=== PATIENT | female | born 1975 | race Caucasian/White ===

== ENCOUNTER 2022-08-05 04:55 | Emergency (ER) | payer MEDICAID ==
[~2022-08-05] VITALS: Ht 152.4 cm; Wt 48.0 kg
[~2022-08-05 04:55] MED LIST: HYDR-4001 MT
[2022-08-05] MEDS ORDERED: ONDANSETRON HCL 4MG/2ML INJ IV STA (09:37)
[2022-08-05] MEDS ORDERED: KETOROLAC 30MG/ML VIAL IV STA (09:37)
[2022-08-05] MEDS ORDERED: SODIUM CHLORIDE 0.9% 1,000 ML IV ONE (09:45)
[2022-08-05 10:03] LABS: HEMOGLOBIN. 13.6 g/dL (12.0-16.0); MEAN CORPUSCULAR HEMOGLOBIN 28.3 pg (28.0-32.0); MEAN CORPUSCULAR VOLUME 85.5 fL (81.0-99.0); RED CELL DISTRIBUTION WIDTH 13.8 % (11.6-14.6)
[2022-08-05 10:07] LABS: PROTHROMBIN TIME 10.9 sec (9.6-11.0)
[2022-08-05 10:18] LABS: HCG SCREEN NEGATIVE
[2022-08-05 10:22] LABS: CHLORIDE 104 mEq/L (98-107)
[2022-08-05 10:24] LABS: PLATELET ESTIMATE NORMAL
[2022-08-05 10:27] VITALS: BP 128/64
[2022-08-05 10:31] LABS: ETHANOL BLOOD < 10 mg/dL
[2022-08-05 10:52] LABS: CLARITY URINE CLOUDY (CLEAR); COLOR URINE DARK YELLOW (YELLOW); KETONES URINE 4+ (NEGATIVE); LEUKOCYTE ESTERASE URINE NEGATIVE (NEGATIVE); NITRITE URINE NEGATIVE (NEGATIVE); OCCULT BLOOD URINE 1+ (NEGATIVE); PH URINE 5.5 (4.5-8.0); PROTEIN URINE 4+ (NEGATIVE); SPECIFIC GRAVITY URINE 1.037 (1.005-1.030)
[2022-08-05 11:09] LABS: *AMPHETAMINES SCREEN URINE NEGATIVE (NEGATIVE); *BARBITURATES SCREEN URINE NEGATIVE (NEGATIVE); *BENZODIAZEPINES SCREEN URINE NEGATIVE (NEGATIVE); *COCAINE SCREEN URINE NEGATIVE (NEGATIVE); METHADONE URINE SCREEN NEGATIVE (NEGATIVE); OPIATES URINE SCREEN NEGATIVE (NEGATIVE); PHENCYCLIDINE URINE SCREEN NEGATIVE (NEGATIVE)
[2022-08-05 11:23] LABS: CANNABINOID URINE SCREEN PRESUMTIVE POSITIVE (NEGATIVE)
[2022-08-05] MEDS ORDERED: IOHEXOL-300 100 ML BOTTLE ONE (12:37)
[2022-08-05] MEDS ORDERED: ONDA4TAB50 MT (13:07)
[2022-08-05] MEDS ORDERED: OMEP40CA20 MT (13:07)
== END 2022-08-05 14:06 | disposition home or self-care (01) ==
LOC: ER 04:55
DX: R10.9 Unspecified abdominal pain (principal); Z88.0 Allergy status to penicillin
CPT/HCPCS: 36415; 74177; 80053; 80305; 80320; 81003; 81025; 83690; 84703; 85025; 85610; 93005; 96374; 96375; 99285; J1885; J2405; J7030; Q9967; G0480

== ENCOUNTER 2022-09-15 15:08 | Emergency (ER) | payer MEDICAID ==
[~2022-09-15] VITALS: Ht 154.9 cm; Wt 73.0 kg
[~2022-09-15 15:08] MED LIST changes: +OMEP40CA20 MT; +ONDA4TAB50 MT
[2022-09-15] MEDS ORDERED: SODIUM CHLORIDE 0.9% 1,000 ML IV ONE (15:30)
[2022-09-15] MEDS ORDERED: MORPHINE SULFATE 4 MG/ML CPJ (NOT FOR IM USE) IV ONE (15:30)
[2022-09-15] MEDS ORDERED: ONDANSETRON HCL 4MG/2ML INJ IV ONE (15:30)
[2022-09-15 15:56] LABS: CHLORIDE 107 mEq/L (98-107)
[2022-09-15 16:10] LABS: HEMOGLOBIN. 13.8 g/dL (12.0-16.0); MEAN CORPUSCULAR HEMOGLOBIN 28.2 pg (28.0-32.0); MEAN CORPUSCULAR VOLUME 85.7 fL (81.0-99.0); MEAN PLATELET VOLUME 8.4 fl (7.4-10.4); PLATELET 330 x1000/uL (130-400); RED CELL DISTRIBUTION WIDTH 14.1 % (11.6-14.6)
[2022-09-15 16:19] LABS: HCG SCREEN NEGATIVE
[2022-09-15 16:42] LABS: PLATELET ESTIMATE NORMAL
[2022-09-15] MEDS ORDERED: LORAZEPAM 0.5MG TABLET PO ONE (17:30)
[2022-09-15] MEDS ORDERED: KETOROLAC 15MG/ML VIAL IV ONE (17:30)
[2022-09-15] MEDS ORDERED: METOCLOPRAMIDE HCL 10MG/2ML VIAL IV ONE (17:45)
[2022-09-15 18:00] VITALS: BP 148/82
[2022-09-15 18:06] LABS: CLARITY URINE CLEAR (CLEAR); COLOR URINE YELLOW (YELLOW); KETONES URINE 4+ (NEGATIVE); LEUKOCYTE ESTERASE URINE NEGATIVE (NEGATIVE); NITRITE URINE NEGATIVE (NEGATIVE); OCCULT BLOOD URINE TRACE (NEGATIVE); PH URINE 5.5 (4.5-8.0); PROTEIN URINE 4+ (NEGATIVE); SPECIFIC GRAVITY URINE 1.031 (1.005-1.030)
[2022-09-15] MEDS ORDERED: MAG-55 MT (18:10)
[2022-09-15] MEDS ORDERED: FAMO-135 MT (18:10)
== END 2022-09-15 19:16 | disposition home or self-care (01) ==
LOC: ER 15:08
DX: R11.2 Nausea with vomiting, unspecified (principal); M79.10 Myalgia, unspecified site; F41.9 Anxiety disorder, unspecified; I10 Essential (primary) hypertension; M19.90 Unspecified osteoarthritis, unspecified site; Z90.49 Acquired absence of other specified parts of digestive tract; Z88.0 Allergy status to penicillin
CPT/HCPCS: 36415; 80053; 81003; 83690; 84484; 84703; 85025; 93005; 96361; 96374; 96375; 99284; J1885; J2270; J2405; J2765; J7030; Z7610